=== PATIENT | male | born 1945 | race Caucasian/White ===

== ENCOUNTER 2017-03-16 07:39 | Day surgery (SDC) | payer MEDICARE, BC ==
[~2017-03-16] VITALS: Ht 177.8 cm; Wt 98.0 kg
--- NOTE | ~2017-03-16 | OR ---
ADMIT: 03/16/2017 RM/LOC: [facility] MR#: [id number] [address] [id number] [address] [place] [address] Operative/Delivery Room Report SEX: M AGE: 72 : 1945 SURGERY DATE: 03/16/2017 SURGEON: Spencer Mg MD PREOPERATIVE DIAGNOSIS: Incarcerated umbilical hernia. POSTOPERATIVE DIAGNOSIS: Incarcerated umbilical hernia. PROCEDURE: Repair of incarcerated umbilical hernia with 6.4 cm Ventralex mesh. ANESTHESIA: General endotracheal. ESTIMATED BLOOD LOSS: 50 mL. DESCRIPTION OF PROCEDURE: The patient was taken to the operating room and placed supine on the operating room table. General anesthesia was established. The abdomen was prepped and draped in the standard surgical fashion. A curvilinear infraumbilical incision was made in the skin. Dissection proceeded down to the hernia sac. The sac was carefully dissected away from the overlying umbilical skin. The skin was thin, but viable upon dissection completion. The sac was opened and there was incarcerated omentum as well as a small loop of small bowel. The bowel appeared viable and was reduced. The omentum, which was the size of larger than a golf ball was excised with cautery and sent as specimen as was the hernia sac. The fascial margins were cleaned of overlying fatty tissue. The defect was 1.5 to 2 cm in diameter. The repair was performed with a 6.4 cm intraabdominal Ventralex mesh. This was secured circumferentially to the fascia in a transfascial manner with 0 silk suture. This provided good overlap with no tension on the repair. The umbilical skin was tacked to the repair site with 2-0 Vicryl suture. Deep tissue was closed with 2-0 Vicryl suture. Skin edges were approximated with 4-0 Monocryl in a subcuticular fashion and Dermabond. Local anesthetic was injected and a dressing was applied. Sponge, needle, and instrument counts were correct at the end of the case. The patient tolerated the procedure well and transferred to the recovery area in stable condition. Spencer Mg MD/ agueda JOB #: [id number] CC: Spencer Mg, Attending Physician Boris Rosen, Family Physician
== END 2017-03-16 15:19 | disposition home or self-care (01) ==
LOC: SSS 07:39
PROC: 0WUF0JZ Supplement Abdominal Wall with Synthetic Substitute, Open Approach (ICD-10-PCS; principal; 2017-03-16)
DX: K42.0 Umbilical hernia with obstruction, without gangrene (principal); E78.5 Hyperlipidemia, unspecified; G47.30 Sleep apnea, unspecified; I10 Essential (primary) hypertension; Z96.653 Presence of artificial knee joint, bilateral; Z79.899 Other long term (current) drug therapy; Z87.891 Personal history of nicotine dependence